=== PATIENT | male | born 1990 | race Caucasian/White ===

== ENCOUNTER → 2018-12-30 12:03 | Outpatient (CLI) | payer OTHER, SELFPAY ==
[2018-12-31 07:25] LABS: LH 5.5 mIU/mL (1.7-8.6)
== END ==
PROVIDERS: Visit Provider Urology
DX: E29.1 Testicular hypofunction (principal)
CPT/HCPCS: 36415; 83001; 83002

== ENCOUNTER → 2019-01-06 11:35 | Outpatient (CLI) | payer OTHER, SELFPAY ==
[2019-01-07 18:47] LABS: Prolactin 16.4 ng/mL (4.0-15.2)
[2019-01-09 17:19] LABS: Testosterone, Total, LC/MS 478.3 ng/dL (264.0-916.0); Testosterone,Free 14.7 pg/mL (9.3-26.5)
== END ==
PROVIDERS: Visit Provider Urology
DX: E29.1 Testicular hypofunction (principal)
CPT/HCPCS: 36415; 83001; 83002; 84146; 84402; 84403

== ENCOUNTER 2021-02-02 12:02 | Emergency (ER) | payer OTHER, SELFPAY ==
[2021-02-02 14:57] VITALS: BP 129/91; PULSE 89; RESP 18; TEMP 37.1; O2SAT 100; BMI 31.6
[2021-02-02 15:06] VITALS: BP 129/91; PULSE 76; RESP 18; TEMP 36.9
--- NOTE | 2021-02-02 15:14 | HMH.EDUTC ---
[facility] Disposition Clinical Impression: Exposure to COVID-19 virus Upper respiratory infection Qualifiers: URI type: unspecified viral URI Qualified Code(s): J06.9 - Acute upper respiratory infection, unspecified Disposition: Home, Self-Care Condition on Discharge: Good Instructions: Preventing the Spread of Coronavirus Discharge Instructions Additional Instructions: You have been tested for COVID19. Please isolate as if you are positive until test results received. Prescriptions: Brompheniramine/Pseudoephed/Dm [Bromfed Dm Cough Syrup] 5 ml PO Q46H 10 Days #180 ml Transmission Status: [facility] Ondansetron [Ondansetron Odt 8mg Tab] 8 mg PO TID 5 Days #20 tab Transmission Status: Pending [facility] predniSONE [Prednisone 20mg Tab] 20 mg PO BID 5 Days #10 tab Transmission Status: Pending to [facility] Referrals: Miki Mederos [Primary Care Provider] - Forms: Work/School Release Time of Disposition: 15:21 Medical Decision Making - William Inquiry Pt receiving controlled substance: No Vital Signs: 02/02/21 14:57 02/02/21 15:06 Temperature 98.7 F 98.5 F Temperature Source Oral Pulse Rate 76 Pulse Rate [Left] 89 Respiratory Rate 18 18 Blood Pressure 129/91 H Blood Pressure [Right Arm] 129/91 H Blood Pressure Mean [Right Arm] 103 02 Sat by Pulse Oximetry 100 Orders (Tests/Meds): ORDERS Category Date Time Status Covid-19 Nasal PCR ([facility]) Routine Lab 02/02/21 15:01 Received [facility] HPI - General Stated complaint: covid test/symptoms Time Seen by Provider: 02/02/21 15:14 Mode of Arrival: Ambulatory Source of Information: Patient Limitations: No Limitations Description of Symptoms (Recalled from Triage Doc. by RN): pt c/o body aches, JARVIS, fever, cough and chills. pt was exposed. HEENT Symptoms (Recalled from RN notes): Yes (JARVIS) Resp Symptoms (Recalled from RN notes): Yes (cough) Skin Symptoms (Recalled from RN notes): No MS Symptoms (Recalled from RN notes): No Functional Status (Recalled from RN notes): body aches, chills, fever - History of Present Illness Provider Complaint: Headache, body aches, fever, chills since this am. Coworker tested positive for COVID19 a few days ago. Onset (ago): day(s) (1) Location: chest Consistency: constant Relieving factors: none Exacerbating factors: none Associated symptoms: cough, fever/chills, malaise Treatments prior to arrival: NSAID - Related Data Previous Rx's Medication Instructions Recorded Brompheniramine/Pseudoephed/Dm 5 ml PO Q46H 10 Days #180 ml 02/02/21 [Bromfed Dm Cough Syrup] Ondansetron [Ondansetron Odt 8mg 8 mg PO TID 5 Days #20 tab 02/02/21 Tab] predniSONE [Prednisone 20mg 20 mg PO BID 5 Days #10 tab 02/02/21 Tab] Allergies Allergy/AdvReac Type Severity Reaction Status Date / Time SULFA (SULFONAMIDE) Allergy Unknown Uncoded 05/25/17 15:05 - Worker's Comp Is this a Worker's Comp case?: No [facility] History - Hepatitis A Screen Drug use history?: No High risk sexual behaviors?: No History of sexually transmitted infection?: No Currently employed?: No Childcare worker?: No Do you have indoor plumbing?: Yes Do you have electricity?: Yes Attestation statement:: This patient has been screened for Hepatitis A risk factors. - Social History Smoking Status: Never smoker Alcohol Intake: current Alcohol Intake Frequency:: a few times a month Occupational Status: employed Family Hx:: Cancer, Hyperlipidemia, Hypertension, Thyroid Disorder ROS Obtained: Yes All systems reviewed & no additional complaints - Constitutional Constitutional: Reports body ache, Reports chills, Reports fatigue, Reports fever(s), Reports malaise - Respiratory Respiratory: Reports cough Physical Exam - General General appearance: alert, in no apparent distress - Head Head exam: normocephalic - Eye Eye exam: Present: PERRL - ENT ENT exam: Pre
== END 2021-02-02 15:42 | disposition home or self-care (01) ==
PROVIDERS: Emergency Provider Physician Assistant; PCP Internal Medicine
DX: U07.1 COVID-19 (principal); Z88.2 Allergy status to sulfonamides
CPT/HCPCS: 99202; G0463; U0003

== ENCOUNTER → 2021-09-18 08:09 | Outpatient (CLI) | payer OTHER, SELFPAY ==
[2021-09-18 10:05] LABS: Chol/HDL Ratio 3.1 (1-3.5); Cholesterol 174 mg/dl (140-200); HDL Cholesterol 57 mg/dl (40-60); Triglycerides 70 mg/dl (30-150); VLDL Cholesterol 14 mg/dL (0-40)
[2021-09-18 10:16] LABS: Direct LDL Cholesterol 97.48 mg/dL (100-129)
[2021-09-19 08:33] LABS: LH 5.6 mIU/mL (1.7-8.6); Prolactin 9.2 ng/mL (4.0-15.2); Sex Hormone Binding Globulin 34.5 nmol/L (16.5-55.9)
[2021-09-21 02:39] LABS: Estrogen 177 pg/mL (56-213)
[2021-09-29 16:12] LABS: Testosterone, Total, LC/MS 239.9 ng/dL (264.0-916.0); Testosterone,Free 10.3 pg/mL (9.3-26.5)
== END ==
PROVIDERS: Visit Provider Internal Medicine
DX: E22.1 Hyperprolactinemia (principal); D35.2 Benign neoplasm of pituitary gland
CPT/HCPCS: 36415; 80061; 82533; 82672; 82787; 83002; 84146; 84270; 84402; 84403

== ENCOUNTER → 2022-01-23 15:14 | Outpatient (CLI) | payer OTHER, SELFPAY ==
[2022-01-23 17:06] LABS: Basophils # 0.1 K/mm3 (0-0.2); Basophils % 1.1 % (0.1-2.0); Eosinophils # 0.1 K/mm3 (0.0-0.4); Eosinophils % 1.8 % (0.1-12.0); Hematocrit 48.7 % (42.0-52.0); Hemoglobin 15.2 g/dL (14.1-18.0); Lymphocytes # 1.9 K/mm3 (0.7-4.5); Lymphocytes % 37.4 % (10-50); Mean Corpuscular HGB Conc 31.2 g/dL (31.8-35.4); Mean Corpuscular Hemoglobin 28.7 pg (27.0-31.2); Mean Corpuscular Volume 91.8 fl (80-94); Mean Platelet Volume 8.1 fl (7.4-10.4); Monocytes # 0.4 K/mm3 (0.1-1.0); Monocytes % 7.8 % (1.7-9.3); Neutrophils # 2.6 K/mm3 (1.8-7.8); Neutrophils % 51.9 % (37.0-80.0); Platelet Count 313 K/mm3 (142-424); Red Blood Count 5.31 M/mm3 (4.60-6.20); Red Cell Distribution Width 13.1 % (11.5-17.5); White Blood Count 5.1 K/mm3 (4.8-10.8)
[2022-01-25 08:11] LABS: Testosterone,Total 1408 ng/dL (264-916)
== END ==
PROVIDERS: PCP Internal Medicine; Visit Provider Internal Medicine
DX: E29.1 Testicular hypofunction (principal)
CPT/HCPCS: 36415; 84403; 85025

== ENCOUNTER → 2023-01-29 14:12 | Outpatient (CLI) | payer OTHER, SELFPAY ==
[2023-01-29 15:02] LABS: Basophils % 0.5 % (0.1-2.0); Eosinophils # 0.1 K/mm3 (0.0-0.4); Eosinophils % 1.6 % (0.1-12.0); Hematocrit 47.2 % (42.0-52.0); Lymphocytes # 1.7 K/mm3 (0.7-4.5); Lymphocytes % 36.9 % (10-50); Mean Corpuscular HGB Conc 33.8 g/dL (31.8-35.4); Mean Corpuscular Hemoglobin 30.4 pg (27.0-31.2); Mean Corpuscular Volume 89.9 fl (80-94); Mean Platelet Volume 8.4 fl (7.4-10.4); Monocytes # 0.3 K/mm3 (0.1-1.0); Monocytes % 6.7 % (1.7-9.3); Neutrophils # 2.5 K/mm3 (1.8-7.8); Neutrophils % 54.4 % (37.0-80.0); Platelet Count 288 K/mm3 (142-424); Red Blood Count 5.25 M/mm3 (4.60-6.20); Red Cell Distribution Width 12.7 % (11.5-17.5); White Blood Count 4.7 K/mm3 (4.8-10.8)
[2023-01-29 16:05] LABS: Hemoglobin A1C 5.5 % (4.0-6.0)
[2023-01-29 17:01] LABS: Alanine Aminotransferase 41 U/L (12-78); Albumin Level 4.5 g/dl (3.5-5.0); Albumin/Globulin Ratio 1.6 (1.1-1.8); Alkaline Phosphatase 53 U/L (38-126); Anion Gap 13.4 mEq/L (5-15); Aspartate Amino Transferase 20 U/L (17-59); Bilirubin,Total 0.6 mg/dl (0.2-1.3); Blood Urea Nitrogen 18 mg/dl (9-20); Calcium 9.2 mg/dl (8.4-10.2); Carbon Dioxide 29 mmol/L (22.0-30.0); Chloride 102 mmol/L (98-107); Chol/HDL Ratio 2.7 (1-3.5); Cholesterol 157 mg/dl (140-200); Estimated Glomerular Filt Rate 88 ml/min (>60); GFR (African American) 106 ML/MIN (>60); Globulin 2.8 g/dL (1.3-3.2); Glucose 77 mg/dl (74-100); HDL Cholesterol 59 mg/dl (40-60); Potassium 4.4 mmoL/L (3.5-5.1); Sodium 140 mmol/L (136-145); Total Protein,Serum 7.3 g/dl (6.3-8.2); Triglycerides 34 mg/dl (30-150); VLDL Cholesterol 7 mg/dL (0-40)
[2023-01-29 17:13] LABS: Direct LDL Cholesterol 85.31 mg/dL (100-129)
== END ==
PROVIDERS: PCP Internal Medicine; Visit Provider Internal Medicine
DX: Z00.8 Encounter for other general examination (principal)
CPT/HCPCS: 80053; 80061; 83036; 85025